=== PATIENT | male | born 1980 | race Hispanic/Latino ===

== ENCOUNTER 2017-06-02 11:18 | Emergency (ER) | payer BC ==
[2017-06-02 11:27] VITALS: TEMP 98.5
[2017-06-02] MEDS ORDERED: Sodium Chloride 0.9% 1,000 ML IV STA (11:33)
--- NOTE | 2017-06-02 11:46 | ED PDOC ---
Arrival/HPI - General Chief Complaint: Back Pain Time Seen by Provider: 06/02/17 11:21 Historian: Patient, Family (sister) - History of Present Illness Narrative History of Present Illness (Text): 06/02/17 Rodney Napoles is a 36 year old male, whose past medical history includes chronic low back pain, presents to the emergency department complaining of left lower back pain since this morning at 06:00. Patient states this pain is unlike his chronic pain and noted that it is constant, achy, and associated with nausea and has vomited x3 today. Patient notes taking 800mg of Ibuprofen, but began to vomit 15 minutes after. Patient denies any diarrhea, fever, hematuria, shortness of breath, chest pain, or other complaints, shooting pains down leg, any radiation of pain, any testicular pain. Time/Duration: 4-6 hours Symptom Onset: Sudden Symptom Course: Unchanged Quality: Aching Associated Symptoms (Text): vomiting Past Medical History - Provider Review Nursing Documentation Reviewed: Yes - Cardiac Hx Cardiac Disorders: No - Pulmonary Hx Respiratory Disorders: No - Neurological Hx Neurological Disorder: No - HEENT Hx HEENT Disorder: No - Renal Hx Renal Disorder: No - Endocrine/Metabolic Hx Endocrine Disorders: No - Hematological/Oncological Hx Blood Disorders: No - Integumentary Hx Dermatological Disorder: No - Musculoskeletal/Rheumatological Hx Musculoskeletal Disorders: Yes Hx Back Pain: Yes - Gastrointestinal Hx Gastrointestinal Disorders: No - Genitourinary/Gynecological Hx Genitourinary Disorders: No - Psychiatric Hx Psychophysiologic Disorder: No Hx Substance Use: No Family/Social History - Physician Review Nursing Documentation Reviewed: Yes Family/Social History: Unknown Family HX Smoking Status: Never Smoked Hx Alcohol Use: No Hx Substance Use: No Allergies/Home Meds Allergies/Adverse Reactions: Allergies No Known Allergies Allergy (Verified 06/02/17 11:27) Home Medications: Home Meds Medication Instructions Recorded Confirmed Ibuprofen [Motrin Tab] 800 mg PO PRN PRN 06/02/17 06/02/17 Review of Systems - Physician Review All systems were reviewed & negative as marked: Yes - Review of Systems Constitutional: absent: Fevers Respiratory: absent: SOB Cardiovascular: absent: Chest Pain Gastrointestinal: Vomiting. absent: Abdominal Pain, Diarrhea Musculoskeletal: Back Pain (left lower back pain ) Physical Exam - Physical Exam Narrative Physical Exam (Text): 06/02/17 Constitutional: Acute distress secondary to pain. Head: Normocephalic. Atraumatic. Eyes: PERRL. ENT: Moist mucous membranes. Neck: Supple. Cardiovascular: Regular rate. No murmur. Regular rhythm. Chest: No tenderness. Respiratory: Clear to auscultation bilaterally. GI: Soft. Nontender. Nondistended. No rebound or guarding. : Testicles nontender, no swelling. Back: No CVA tenderness. No midline tenderness. Musculoskeletal: No tenderness or swelling of extremities. Skin: No rash in area of pain. Neurologic: Alert, no focal deficit. Vital Signs Reviewed: Yes Vital Signs Temp Pulse Resp BP Pulse Ox 06/02/17 14:00 81 17 125/88 98 06/02/17 12:11 127/80 06/02/17 11:24 98.5 F 83 16 126/83 100 Temperature: Afebrile Blood Pressure: Normal Pulse: Regular Respiratory Rate: Normal Appearance: Positive for: Well-Appearing, Non-Toxic, Comfortable Pain Distress: Severe Mental Status: Positive for: Alert and Oriented X 3 Medical Decision Making ED Course and Treatment: 06/02/17 Impression: 36 year old male in actue distress secondary to pain with complaints of left lower back/flank pain and vomiting x3 Plan: -- CT abdomen and pelvis -- Labs -- Urinalysis -- Reassess and disposition Progress Notes: 06/02/17 12:55 CT abdominal and pelvis: FINDINGS: LOWER THORAX: Unremarkable. LIVER: Unremarkable. No gross lesion or ductal dilatation. GALLBLADDER AND BILE DUCTS: Unremarkable. PANCREAS: Unremarkable. No gross lesion or ductal dilatation. SPLEEN: Unremarkable. ADRENALS: Unremarkable. No mass. KIDNEYS AND URETERS: Unremarkable. No hydronephrosis. No solid mass. VASCULATURE: Unremarkable. No aortic aneurysm. BOWEL: Unremarkable. No obstruction. No gross mural thickening. APPENDIX: Unremarkable. Normal appendix. PERITONEUM: Unremarkable. No free fluid. No free air. LYMPH NODES: Unremarkable. No enlarged lymph nodes. BLADDER: Unremarkable. REPRODUCTIVE: Unremarkable. BONES: No acute fracture. OTHER FINDINGS: None. IMPRESSION: Unremarkable non contrast enhanced CT of the abdomen and pelvis. 06/02/17 15:[address] study for nephrolithiasis. I discussed the CT with radiologist again, upon second review, states no abnormal findings found. Patient continues to have severe pain, states toradol did nothing and morphine was only mildly helpful. Lipase added and normal. After excluding kidney stone, pyelonephritis, and pancreatitis, my differential now consists of MSK pain, aortic dissection, and zoster (pre-rash). I offered the patient a CT angio to rule out dissection. I discussed the risks and benefits of the study, stating that a missed aortic dissection is life threatening and the probability of cancer and kidney injury from CT with IV contrast. Blood pressure normal and equal in bilateral arms. The patient has decided to go home and attempt to treat the pain at home as muskuloskeletal pain. He states he will return to the ED should the pain be intolerable or he is concerned about the persistent or developing symptoms. - Lab Interpretations Lab Results: 06/02/17 11:50 06/02/17 11:50 Lab Results 06/02/17 14:29: Lipase 25 06/02/17 13:07: Urine Color Yellow, Urine Appearance Clear, Urine pH 7.5, Ur Specific [place] 1.020, Urine Protein Trace H, Urine Glucose (UA) Negative, Urine Ketones 15 H, Urine Blood Negative, Urine Nitrate Negative, Urine Bilirubin Negative, Urine Urobilinogen 0.2, Ur Leukocyte Esterase Negative, Urine RBC 0 - 2, Urine WBC 0 - 2, Urine Bacteria Trace 06/02/17 11:50: Sodium 140, Potassium 4.0, Chloride 104, Carbon Dioxide 26, Anion Gap 14, BUN 16, Creatinine 0.8, Est GFR ( Amer) > 60, Est GFR (Non- Af Amer) > 60, Random Glucose 106, Calcium 9.6, Total Bilirubin 0.7, AST 36, ALT 42, Alkaline Phosphatase 59, Total Protein 7.5, Albumin 4.4, Globulin 3.0, Albumin/Globulin Ratio 1.5 06/02/17 11:50: WBC 9.1, RBC 5.15, Hgb 14.6, Hct 42.1, MCV 81.7, MCH 28.3, MCHC 34.7, RDW 13.2, Plt Count 356, MPV 10.7, Gran % 76.1 H, Lymph % (Auto) 18.1 L, [place] % (Auto) 5.2, Eos % (Auto) 0.2 L, Baso % (Auto) 0.4, Gran # 6.91 H, Lymph # 1.6, [place] # 0.5, Eos # 0.0, Baso # 0.04 I have reviewed the lab results: Yes - RAD Interpretation Radiology Orders: 06/02/17 11:33 ABD & PELVIS W/O PO OR IV CONT [CT] Stat Employment Training Specialist: Radiologist - Medication Orders Current Medication Orders: Cyclobenzaprine HCl (Flexeril) 10 mg PO STAT STA Stop: 06/02/17 15:06 Discontinued Medications Sodium Chloride (Sodium Chloride 0.9%) 1,000 mls @ 999 mls/hr IV .Q1H1M STA Stop: 06/02/17 12:33 Last Admin: 06/02/17 11:47 Dose: 999 mls/hr eMAR Start Stop Document 06/02/17 11:47 SF (Rec: 06/02/17 11:47 SF [email or web address]) Intravenous Solution Start Date 06/02/17 Start Time 11:47 End Date 06/02/17 End time 12:48 Total Infusion Time 61 Ketorolac Tromethamine (Toradol) 30 mg IVP STAT STA Stop: 06/02/17 11:34 Last Admin: 06/02/17 11:46 Dose: 30 mg MAR Pain Assessment Document 06/02/17 11:46 SF (Rec: 06/02/17 11:47 SF [email or web address] Pain Reassessment Is this a pain reassessment? Yes Sleep Is patient sleeping during reassessment? No Pain Scale Used Pain Scale Used Numeric Location Left, Right or Bilateral Left Description Description Constant Pain Behavior Grasping Site Restlessness Facial Grimacing IVP Administration Document 06/02/17 11:46 SF (Rec: 06/02/17 11:47 SF [email or web address]) Charges for Administration # of IVP Administrations 1 Re-Assess: MAR Pain Assessment Document 06/02/17 12:46 SF (Rec: 06/02/17 14:48 SF [email or web address] Pain Reassessment Is this a pain reassessment? Yes Sleep Is patient sleeping during reassessment? No Presence of Pain Presence of Pain Yes Morphine Sulfate (Morphine) 4 mg IVP STAT STA Stop: 06/02/17 14:12 Last Admin: 06/02/17 14:47 Dose: Ondansetron HCl (Zofran Inj) 8 mg IVP STAT STA Stop: 06/02/17 11:34 Last Admin: 06/02/17 11:46 Dose: 8 mg IVP Administration Document 06/02/17 11:46 SF (Rec: 06/02/17 11:46 SF [email or web address] Charges for Administration # of IVP Administrations 1 - Scribe Statement The provider has reviewed the documentation as recorded by the Scribe Carolina Fritz Provider Scribe Attestation: All medical record entries made by the Scribe were at my direction and personally dictated by me. I have reviewed the chart and agree that the record accurately reflects my personal performance of the history, physical exam, medical decision making, and the department course for this patient. I have also personally directed, reviewed, and agree with the discharge instructions and disposition. Disposition/Present on Arrival - Present on Arrival Any Indicators Present on Arrival: No History of DVT/PE: No History of Uncontrolled Diabetes: No Urinary Catheter: No History of Decub. Ulcer: No History Surgical Site Infection Following: None - Disposition Have Diagnosis and Disposition been Completed?: No Diagnosis: Flank pain Disposition: HOME/ ROUTINE Disposition Time: 15:14 Patient Plan: Discharge Condition: STABLE Discharge Instructions (ExitCare): Flank Pain (ED) Prescriptions: Cyclobenzaprine [Cyclobenzaprine HCl] 10 mg PO Q8H #16 tab Forms: [employer] (Peruvian)
[2017-06-02] MEDS ORDERED: Morphine 4 mg/ml ISec ONE (12:11)
[2017-06-02 12:23] LABS: BASO # 0.04 K/mm3 (0.0-2.0); BASO % 0.4 % (0.0-3.0); EOS % 0.2 % (1.5-5.0); GRAN # 6.91 (1.4-6.5); GRAN % 76.1 % (50.0-68.0); HEMATOCRIT 42.1 % (42.0-52.0); LYMPH # 1.6 (1.2-3.4); LYMPH % 18.1 % (22.0-35.0); MEAN CELL VOLUME 81.7 fl (80.0-105.0); MEAN CORPUSCULAR HEMOGLOBIN 28.3 pg (25.0-35.0); MEAN CORPUSCULAR HGB CONC 34.7 g/dl (31.0-37.0); MEAN PLATELET VOLUME 10.7 fl (7.0-11.0); MONO # 0.5 (0.1-0.6); MONO % 5.2 % (1.0-6.0); RED CELL DISTRIBUTION WIDTH 13.2 % (11.5-14.5); WHITE BLOOD COUNT 9.1 10^3/ul (4.5-11.0)
[2017-06-02 12:32] LABS: ALB/GLOB RATIO 1.5 (1.1-1.8); ALKALINE PHOSPHATASE 59 U/L (38-126); ALT/SGPT 42 U/L (7-56); AST/SGOT 36 U/L (17-59); BILIRUBIN,TOTAL 0.7 mg/dL (0.2-1.3); BLOOD UREA NITROGEN 16 mg/dL (7-21); CALCIUM 9.6 mg/dL (8.4-10.5); CARBON DIOXIDE 26 mmol/L (21-33); CHLORIDE 104 mmol/L (98-107); GFR AFRICAN-AMERICAN > 60; GLUCOSE,RANDOM 106 mg/dL (70-110); SODIUM 140 mmol/L (132-148); TOTAL PROTEIN 7.5 g/dL (5.8-8.3)
--- NOTE | 2017-06-02 12:54 | CT ---
PROCEDURE: CT Abdomen and Pelvis without intravenous contrast HISTORY: L flank pain COMPARISON: None. TECHNIQUE: Without contrast.. Contrast Dose: Radiation dose: Total exam DLP = 1145 mGy-cm. This CT exam was performed using one or more of the following dose reduction techniques: Automated exposure control, adjustment of the mA and/or kV according to patient size, and/or use of iterative reconstruction technique. FINDINGS: LOWER THORAX: Unremarkable. LIVER: Unremarkable. No gross lesion or ductal dilatation. GALLBLADDER AND BILE DUCTS: Unremarkable. PANCREAS: Unremarkable. No gross lesion or ductal dilatation. SPLEEN: Unremarkable. ADRENALS: Unremarkable. No mass. KIDNEYS AND URETERS: Unremarkable. No hydronephrosis. No solid mass. VASCULATURE: Unremarkable. No aortic aneurysm. BOWEL: Unremarkable. No obstruction. No gross mural thickening. APPENDIX: Unremarkable. Normal appendix. PERITONEUM: Unremarkable. No free fluid. No free air. LYMPH NODES: Unremarkable. No enlarged lymph nodes. BLADDER: Unremarkable. REPRODUCTIVE: Unremarkable. BONES: No acute fracture. OTHER FINDINGS: None. IMPRESSION: Unremarkable non contrast enhanced CT of the abdomen and pelvis.
[2017-06-02 13:20] LABS: PH,URINE 7.5 (4.7-8.0); URINE BILIRUBIN NEGATIVE (NEGATIVE); URINE BLOOD NEGATIVE (NEGATIVE); URINE GLUCOSE (UA) NEGATIVE (NEGATIVE); URINE KETONE 15 mg/dL (NEGATIVE); URINE LEUKOCYTE ESTERASE NEGATIVE Leu/uL (NEGATIVE); URINE PROTEIN TRACE mg/dL (<30 mg/dL); URINE UROBILINOGEN 0.2 E.U./dL (<1 E.U./dL)
[2017-06-02 13:21] LABS: URINE APPEARANCE CLEAR (CLEAR); URINE COLOR YELLOW (YELLOW)
[2017-06-02 13:43] LABS: URINE BACTERIA TRACE (NEG); URINE RBC 0 - 2 /hpf (0-2); URINE WBC 0 - 2 /hpf (0-6)
[2017-06-02] MEDS ORDERED: Morphine 5 MG/ML SYRINGE IVP STA (14:11)
[2017-06-02 14:52] VITALS: O2SAT 98
[2017-06-02 16:15] VITALS: BP 123/79; PULSE 75; RESP 18
== END 2017-06-02 15:25 | disposition home or self-care (01) ==
LOC: ED 11:18
DX: R10.9 Unspecified abdominal pain (principal)
CPT/HCPCS: 74176; 80053; 81001; 83690; 85025; 96361; 96374; 96375; 99285; J1885; J2270; J2405; J7040